=== PATIENT | female | born 1965 | race Caucasian/White ===

== ENCOUNTER 2017-06-18 17:21 | Emergency (ER) | payer OTHER ==
[2017-06-18 17:32] VITALS: BP 122/84; PULSE 70; RESP 16; TEMP 97.9; O2SAT 99
--- NOTE | 2017-06-18 17:47 | EDPHY ---
H & P Stated Complaint: Fractured 7th left rib, sent by for further evaluation. Time Seen by Provider: 06/18/17 17:36 HPI/ROS: CHIEF COMPLAINT: Rib fracture HISTORY OF PRESENT ILLNESS: Patient is a 51-year-old female who comes to the emergency department complaining of a left posterior rib fracture. She states that on Wednesday she fell backwards onto a log. She went to an urgent care today and had an x-ray taken which revealed a minimally displaced left posterior rib fracture. No pneumothorax. The urgent care recommended she come here to be evaluated to ensure that she did not developed a pneumothorax. The patient denies shortness of breath. No fever. No cough. No chest pain. REVIEW OF SYSTEMS: Constitutional: denies: chills, fever, recent illness, recent injury EENTM: denies: blurred vision, double vision, nose congestion Respiratory: See HPI Cardiac: denies: chest pain, irregular heart rate, lightheadedness, palpitations Gastrointestinal/Abdominal: denies: abdominal pain, diarrhea, nausea, vomiting, blood streaked stools Genitourinary: denies: dysuria, frequency, hematuria, pain Musculoskeletal: denies: joint pain, muscle pain Skin: denies: lesions, rash, jaundice, bruising Neurological: denies: headache, numbness, paresthesia, tingling, dizziness, weakness Hematologic/Lymphatic: denies: blood clots, easy bleeding, easy bruising Immunologic/allergic: denies: HIV/AIDS, transplant EXAM: GENERAL: Well-appearing, well-nourished and in no acute distress. HEAD: Atraumatic, normocephalic. EYES: Pupils equal round and reactive to light, extraocular movements intact, sclera anicteric, conjunctiva are normal. ENT: TMs normal, nares patent, oropharynx clear without exudates. Moist mucous membranes. NECK: Normal range of motion, supple without lymphadenopathy or JVD. LUNGS: Breath sounds clear to auscultation bilaterally and equal. No wheezes rales or rhonchi. Mild left posterior rib pain. HEART: Regular rate and rhythm without murmurs, rubs or gallops. ABDOMEN: Soft, nontender, normoactive bowel sounds. No guarding, no rebound. No masses appreciated. BACK: No CVA tenderness, no spinal tenderness, step-offs or deformities EXTREMITIES: Normal range of motion, no pitting or edema. No clubbing or cyanosis. NEUROLOGICAL: Cranial nerves II through XII grossly intact. Normal speech, normal gait. 5/5 strength, normal movement in all extremities, normal sensation PSYCH: Normal mood, normal affect. SKIN: Warm, dry, normal turgor, no visible rashes or lesions. Source: Patient Exam Limitations: No limitations - Personal History Current Tetanus Diphtheria and Acellular Pertussis (TDAP): Yes - Medical/Surgical History Hx Asthma: No Hx Chronic Respiratory Disease: No Hx Diabetes: No Hx Cardiac Disease: No Hx Renal Disease: No Hx Cirrhosis: No Hx Alcoholism: No Hx HIV/AIDS: No Hx Splenectomy or Spleen Trauma: No Other PMH: Denies - Family History Significant Family History: No pertinent family hx - Social History Smoking Status: Never smoked Alcohol Use: Sober Drug Use: None Constitutional: Initial Vital Signs Temperature (C) 36.6 C 06/18/17 17:27 Heart Rate 70 06/18/17 17:27 Respiratory Rate 16 06/18/17 17:27 Blood Pressure 122/84 H 06/18/17 17:27 O2 Sat (%) 99 06/18/17 17:27 O2 Delivery Mode Room Air Allergies/Adverse Reactions: No Known Allergies Allergy (Unverified 06/18/17 17:32) Home Medications: Medication Instructions Recorded NK [No Known Home Meds] 06/18/17 Medical Decision Making - Diagnostics Imaging Results: I did evaluate the images sent from urgent care. She does appear to have a minimally displaced rib fracture. No visible pneumothorax. ED Course/Re-evaluation: We discussed typical treatment for rib fractures. She is requesting Dominic bandage which she states helped her at home last night. Will also treat her with an incentive spirometer. She declines narcotics and will continue taking ibuprofen. We discussed the duration and normal course of this injury. She does not wish to repeat imaging. Her x-ray was only done about 30 minutes prior to arriving here and her symptoms have not changed. Differential Diagnosis: Partial list of the Differential diagnosis considered include but were not limited to; rib fracture, pneumothorax and although unlikely based on the history and physical exam, I also considered pneumonia, PE, muscle strain. I discussed these differential diagnoses and the plan with the patient as well as the usual and expected course. The patient understands that the diagnosis is provisional and that in medicine we are not always correct and that further workup is often warranted. Usual and customary warnings were given. All of the patient's questions were answered. The patient was instructed to return to the emergency department should the symptoms at all worsen or return, otherwise to followup with the physician as we discussed. Departure - Departure Disposition: Home, Routine, Self-Care Clinical Impression: Rib fracture Qualifiers: Encounter type: initial encounter Rib fracture type: single rib Fracture type: closed Laterality: left Qualified Code(s): S22.32XA - Fracture of one rib, left side, initial encounter for closed fracture Condition: Fair Instructions: Rib Fracture (ED) Referrals: Dennis De Souza MD [Primary Care Provider] - As per Instructions
== END 2017-06-18 18:04 | disposition home or self-care (01) ==
DX: S22.32XA Fracture of one rib, left side, initial encounter for closed fracture (principal); W18.30XA Fall on same level, unspecified, initial encounter